=== PATIENT | female | born 1985 | race Hispanic/Latino ===

== ENCOUNTER → 2019-04-01 11:59 | Outpatient (CLI) | payer OTHER, MEDICAID, SELFPAY ==
[2019-04-01 13:28] LABS: Hematocrit 37.5 % (36-46); Hemoglobin 12.5 g/dL (12.0-16.0)
[2019-04-01 14:08] LABS: GTT (PREG) 1 Hour PP 50gm Dose 137 mg/dL (76-139)
== END ==
PROVIDERS: Visit Provider Family Medicine
DX: Z34.83 Encounter for supervision of other normal pregnancy, third trimester (principal); Z3A.29 29 weeks gestation of pregnancy
CPT/HCPCS: 36415; 82950; 85014; 85018

== ENCOUNTER → 2019-05-22 11:49 | Outpatient (CLI) | payer OTHER, MEDICAID, SELFPAY ==
[2019-05-22 13:57] LABS: Strep Grp B PCR NEG for Grp B Strep
== END ==
PROVIDERS: Visit Provider Family Medicine
DX: Z34.90 Encounter for supervision of normal pregnancy, unspecified, unspecified trimester (principal); Z3A.37 37 weeks gestation of pregnancy
CPT/HCPCS: 87081; 87653

== ENCOUNTER 2019-06-10 06:05 | Inpatient (IN) | payer OTHER, MEDICAID, SELFPAY ==
--- NOTE | 2019-06-10 07:01 | PM.HP.1 ---
History of Present Illness History of Present Illness Date Patient Seen: 06/10/19 Time Patient Seen: 07:01 Chief complaint: [id number] Narrative: 33-year-old female G3 para 1 estimated due date 06/12/2009 consistent with early ultrasound. If care established had approximately 12 weeks. Patient had routine follow-up during her care. Had weight gain of approximately 40 lb. Had normal blood pressures throughout. care complications includes history of in 2006 due to oligohydramnios she had late transfer care from [place]. Her medications during included vitamins metronidazole and Flagyl early in the hydrocortisone cream for hemorrhoids as well as near the end have prescription for Pepcid because of heartburn. On arrival to the center. She has intermittent contractions she is uncomfortable and she is ready to have a baby. She has no complaints of headache dizziness lightheadedness chest pain fevers. She has a little bit swollen. Patient's past medical history of external hemorrhoids otherwise she denies any history of diabetes heart disease respiratory problems problems with anemia or autoimmune disorders. Past surgical history includes previous . Infectious history. Patient denies any history of infectious diseases such as TB HSV virus no viral illnesses during the . She denies any history of sexually transmitted infections. labs blood type O-positive antibody screen negative VDRL nonreactive a the tightest B surface antigen negative HIV negative GC chlamydia negative rubella immune diabetes screening at 1:37 a.m. normal anatomy screening and GBS status is negative. Patient History Surgical History (Updated 03/19/19 @ 07:43 by Belkis Limon) Anesthesia (Acute) delivery delivered (Inactive) Family & Social History Family History (Updated 03/19/19 @ 07:44 by Belkis Limon) Mother Diabetes mellitus Heart disease Grandmother Diabetes mellitus Meds Home Medications and Allergies Home Medications Medication Instructions Recorded Confirmed Type prenat.vits,casey,jxk-wpfw-zlani 1 tab PO DAILY 03/18/19 05/28/19 History Allergies Allergy/AdvReac Type Severity Reaction Status Date / Time No Known Drug Allergies Allergy Verified 05/28/19 09:38 Exam Narrative Exam Narrative: . General: Alert no apparent distress. Affect is appropriate. HEENT: Neck is supple without lymphadenopathy pupils equal round and reactive. Cardio: S1-S2 regular rate and rhythm. Respiratory: Lungs clear to auscultation. Abdomen: Gravid. Extremities: Normal deep tendon reflexes trace edema. heart tracing. Category 1 tracing. Intermittent contractions on toco Objective Labs Result Diagrams: 06/10/19 06:54 Assessment & Plan Assessment & Plan narrative: 33-year-old G3 para 139 weeks gestational age for repeat delivery. Procedure was discussed in detail of repeat section including risks complications and aftercare instructions. Risk included possibility of bleeding as well as blood transfusion risk of infection. Also risk of injury to bladder or bowel. Consent was obtained and reviewed and signed with the patient today. Inpatient preoperative orders were written for. Anticipate epidural anesthesia. And postoperative stay to be approximately 2 days. Questions were answered about the surgery. And we will proceed with repeat section.
[2019-06-10 07:21] LABS: Add Manual Diff / Slide Review NO; Basophils Absolute Auto 0 /uL (0-100); Basophils Percent Auto 0.2 % (0-2); Eosinophils Absolute Auto 100 /uL (0-450); Eosinophils Percent Auto 0.6 % (2-4); Hematocrit 37.9 % (36-46); Hemoglobin 12.9 g/dL (12.0-16.0); Lymphocytes Absolute Auto 2000 /uL (1100-4500); Lymphocytes Percent Auto 22.4 % (25-40); Mean Corpuscular HGB Conc 33.9 % (30-36); Mean Corpuscular Hemoglobin 29.9 PG (26-34); Mean Corpuscular Volume 88.2 fL (80-100); Monocytes Absolute Auto 800 /uL (0-900); Monocytes Percent Auto 8.7 % (3-14); Neutrophils Absolute Auto 6000 /uL (1500-7000); Neutrophils Percent Auto 68.1 % (50-75); Platelet Count 221 X10^3/uL (150-400); White Blood Cell Count 8.8 X10^3/uL (4.5-11.0)
[2019-06-10] MEDS: CEFAZOLIN 2 GM/100 ML FROZ.PIGGY IV (08:00)
[2019-06-10 08:50] VITALS: BP 127/20
[2019-06-10] MEDS: CEFAZOLIN 1 GM VIAL IV (09:05)
--- NOTE | 2019-06-10 09:24 | SUR.OPER ---
Supine on Padded OR bed, head on pillow, safety belt at thigh, arms secured on padded arm boards at <90 degrees abduction. Bump under right buttock. Legs uncrossed with pillow under knees, gel pad to heels, tape over blanket to lower legs.
[2019-06-10] MEDS: LACTATED RINGERS 1,000 ML 100 ML IV ×2 (09:31→11:12)
--- NOTE | 2019-06-10 09:47 | SUR.OPER ---
live male at 0929. apgars 7/9
--- NOTE | 2019-06-10 10:14 | PM.PROC.1 ---
Procedures Date/Time Date of procedure: 06/10/19 Time of procedure: 10:15 General Procedure description: Procedure: Lower segment transverse section Consent: Verbal and written informed consent were obtained from the patient placed on the chart. Indications: 33-year-old G3 para 1 at 39 weeks gestational age for repeat section Findings: Normal uterus normal ovaries Normal male in vertex position Anesthesia: Spinal Surgeon: Dr. Jose Carlos Canales Primer Inserting Machine Operator: Dr. Khalif Vu Estimated blood loss: 500 mL Drains: Peng to gravity. IV fluids: 1800 Description of procedure: The patient was brought to the operating room after her spinal epidural, preparation, and Peng had been performed. The abdomen was prepped and draped in tested for for analgesia. When it was found to be adequate, a lower abdominal Pfannenstiel incision was made with first with a knife and cared down to the fascia with a second knife. The fascia was incised in the midline and extended laterally with a knife. Bleeding points were clamped with hemostats and Bovie coagulated. The rectus muscles were by blunt dissection. The rectus muscles were divided in the midline and the peritoneum was grasped with hemostats and carefully entered with Blue scissors. The incision was extended bilaterally. The bladder blade was then placed. The vesicoperitoneum was grasped with smooth pickups, entered with Metzenbaum scissors, and extended laterally. The bladder flap was created by gently blunt dissection and placed behind the bladder blade. The lower uterine segment was noted to be thin was carefully incised with the scalpel and extended laterally with the fingers. A live was found to be in the vertex position. The head was then easily elevated with the hand. Head was delivered with the use of a vacuum. The baby cried immediately, and was handed to the waiting attendant. The placenta was delivered manually. The uterus was explored with a wet lap sponge and found to be clear membranes. The first layer of the uterine closure was with running locking #1 chromic catgut suture. The second layer with an imbricating #1 chromic catgut suture. Hemostasis was carefully checked and found to be satisfactory. The bladder flap was closed with a running 2-0 chromic catgut suture. The fallopian tubes and ovaries were inspected and to be found normal bilaterally. After sponge and needle counts were found to be correct the peritoneum was closed with 2-0 chromic catgut suture. Rectus muscles were approximated in the lower midline. The fascia was closed with a 2 running 0 Vicryl from lateral to midline. The subcutaneous tissue was approximated with interrupted 2.0 plain gut. Bleeding points were Bovie and coagulated. The subcutaneous tissue was approximated with 2.0 plain gut suture. The skin was closed with 4-0 running subcuticular stitch. Urinary output was adequate and normal patient left to the recovery room in good condition.
[2019-06-10 10:16] VITALS: BP 103/44; PULSE 67; RESP 12; RESP 15; O2SAT 97; O2SAT 98
[2019-06-10 10:22] VITALS: BP 102/49; PULSE 74; RESP 14; O2SAT 97
[2019-06-10 10:26] VITALS: BP 106/50; PULSE 74; RESP 15; O2SAT 100
[2019-06-10 10:31] VITALS: BP 103/54; PULSE 65; RESP 17; TEMP 35.7; O2SAT 97
[2019-06-10] MEDS: KETOROLAC 30 MG/ML VIAL IV ×2 (17:05→23:01)
[2019-06-11] MEDS: KETOROLAC 30 MG/ML VIAL IV (05:10)
[2019-06-11 07:38] LABS: Add Manual Diff / Slide Review NO; Basophils Absolute Auto 0 /uL (0-100); Basophils Percent Auto 0.3 % (0-2); Eosinophils Absolute Auto 0 /uL (0-450); Eosinophils Percent Auto 0.3 % (2-4); Hematocrit 33.2 % (36-46); Hemoglobin 11.4 g/dL (12.0-16.0); Lymphocytes Absolute Auto 2200 /uL (1100-4500); Mean Corpuscular HGB Conc 34.3 % (30-36); Mean Corpuscular Hemoglobin 30.4 PG (26-34); Mean Corpuscular Volume 88.6 fL (80-100); Monocytes Absolute Auto 1100 /uL (0-900); Neutrophils Absolute Auto 9000 /uL (1500-7000); Neutrophils Percent Auto 72.4 % (50-75); Platelet Count 213 X10^3/uL (150-400); Red Blood Cell Count 3.74 X10^6/uL (4.0-5.2); Red Cell Distribution Width 14.3 % (11.6-14.8); White Blood Cell Count 12.4 X10^3/uL (4.5-11.0)
--- NOTE | 2019-06-11 08:03 | P.PN_ITS ---
Subjective Subjective Date Patient Seen: 06/11/19 Time Patient Seen: 08:03 Interval history: Patient is seen and evaluated she is doing well this morning. Her Peng catheters out SCDs off she sitting at the bedside. When I examined the baby she gets up and moves. She says her pain is well controlled. Not really having a lot of cramping. Bleeding is anticipated. Vital signs are stable. She is a little bit itchy. She is tolerating her diet no bowel movemen t yet. She is afebrile. Overall feeling well. Exam Vital Signs (past 8 hours): Oxygen Delivery Method Room Air Narrative Exam Narrative: General: Alert no apparent distress. Affect is appropriate. [place] it is uncomfortable. HEENT: Neck is supple without lymphadenopathy pupils equal round and reactive. Cardio: S1-S2 regular rate and rhythm. Respiratory: Lungs clear to auscultation. Abdomen: Uterus firm. Incision clean dry and intact. Extremities: Normal deep tendon reflexes trace edema. Objective Labs Result Diagrams: 06/11/19 06:31 Labs: Laboratory Results - last 24 hr 06/11/19 06:31 WBC 12.4 H RBC 3.74 L Hgb 11.4 L Hct 33.2 L MCV 88.6 MCH 30.4 MCHC 34.3 RDW 14.3 Plt Count 213 Neut % (Auto) 72.4 Lymph % (Auto) 18.0 L [place] % (Auto) 9.0 Eos % (Auto) 0.3 L Baso % (Auto) 0.3 Neut # (Auto) 9000 H Lymph # (Auto) 2200 [place] # (Auto) 1100 H Eos # (Auto) 0 Baso # (Auto) 0 Assessment & Plan Assessment & Plan narrative: day 1. Status post repeat section. Patient is doing well today. Pain is well controlled some mild cramping. She is worried that her breast milk has not come in she is tolerating her diet. She has some mild itching. Normal vaginal bleeding as expected. She is not anemic. SCDs and Peng catheter and IV had been removed. Gradually increasing diet starting on oral pain medication and overall patient is tolerating things well. Anticipate discharge tomorrow.
[2019-06-11] MEDS: IBUPROFEN 600 MG TABLET PO ×3 (09:41→21:45)
[2019-06-11] MEDS: PRENATAL VIT,CALC/IRON/FOLIC 1 TABLET 1 TAB PO (09:41)
[2019-06-11] MEDS: DOCUSATE 250 MG CAPSULE PO (09:42)
[2019-06-11 16:00] VITALS: BP 104/58; PULSE 74; RESP 16; TEMP 36.4
[2019-06-11] MEDS: OXYCODONE/ACETAMINOPHEN 5/325 TABLET 2 TAB PO ×2 (17:18→21:44)
[2019-06-12] MEDS: OXYCODONE/ACETAMINOPHEN 5/325 TABLET 2 TAB PO ×2 (03:22→09:02)
[2019-06-12] MEDS: IBUPROFEN 600 MG TABLET PO ×2 (03:23→09:01)
--- NOTE | 2019-06-12 08:20 | PM.DS.1 ---
History of Present Illness History of Present Illness Chief complaint: [id number] Narrative: 33-year-old female G3 para 1 estimated due date 06/12/2009 consistent with early ultrasound. If care established had approximately 12 weeks. Patient had routine follow-up during her care. Had weight gain of approximately 40 lb. Had normal blood pressures throughout. care complications includes history of in 2006 due to oligohydramnios she had late transfer care from [place]. Her medications during included vitamins metronidazole and Flagyl early in the hydrocortisone cream for hemorrhoids as well as near the end have prescription for Pepcid because of heartburn. On arrival to the center. She has intermittent contractions she is uncomfortable and she is ready to have a baby. She has no complaints of headache dizziness lightheadedness chest pain fevers. She has a little bit swollen. Patient's past medical history of external hemorrhoids otherwise she denies any history of diabetes heart disease respiratory problems problems with anemia or autoimmune disorders. Past surgical history includes previous . Infectious history. Patient denies any history of infectious diseases such as TB HSV virus no viral illnesses during the . She denies any history of sexually transmitted infections. labs blood type O-positive antibody screen negative VDRL nonreactive a the tightest B surface antigen negative HIV negative GC chlamydia negative rubella immune diabetes screening at 1:37 a.m. normal anatomy screening and GBS status is negative. Discharge Providers Provider Date of admission: 06/10/19 06:05 Discharge Date: 06/12/19 Primary care physician: Jose Carlos Canales MD Consults: 06/10/19 11:06 Consult to Weatherization And Housing Inspector Routine Comment: Discharge provider: Jose Carlos Canales MD Summary Hospital Course Discharge Diagnosis: Term intrauterine Repeat section Uncomplicated post delivery care Hospital Course: Patient was admitted the hospital per for repeat section please see admission HPI. Patient underwent a without the problems. Had delivery of a viable male . day 1. Patient had good pain control she was eating ambulating Peng and SCDs and IV were removed. She was tolerating pain medication on postoperative day 2. Breast-feeding was going well. She was sleeping well. Patient was the afebrile and vital signs were stable she was not significantly anemic and ready for discharge. Exam Vital Signs (past 8 hours): Oxygen Delivery Method Room Air Narrative Exam Narrative: General: Alert no apparent distress. Affect is appropriate. [place] it is uncomfortable. HEENT: Neck is supple without lymphadenopathy pupils equal round and reactive. Cardio: S1-S2 regular rate and rhythm. Respiratory: Lungs clear to auscultation. Abdomen: Uterus firm. Incision clean dry and intact. Extremities: Normal deep tendon reflexes trace edema. Objective Labs Result Diagrams: 06/11/19 06:31 Discharge Plan Discharge Plan Patient Disposition: Home Discharge orders & Medications Prescriptions: New hydrocodone-acetaminophen 5-325 mg Tablet 2 tab PO Q4HR PRN (Reason: Pain, Severe (7-10)) Qty: 30 RF: 0 ibuprofen 600 mg Tablet 600 mg PO Q6HR PRN (Reason: Fever/Mild Pain (1-3)) Qty: 30 RF: 0 docusate sodium 250 mg Capsule 250 mg PO DAILY Qty: 30 RF: 0 Continued prenat.vits,casey,umu-bxhv-sscwf tablet 1 tab PO DAILY RF: 0 Follow up/Referrals: Jose Carlos Canales MD [Primary Care Provider] - Diet/Activity/Treatments Diet: Diet as Tolerated Activity: As tolerated lifting nothing heavier than the baby until follow-up appointment. Skin/Wound/Dressing Care Report to your healthcare provider any signs of infection, such as:: chills, fever, increased pain, unusual drainage and unusual redness Dressing: Keep dressing dry until follow-up appointment where will be removed Visit Report/Discharge Packet Instructions: DI for Stand Alone Forms: Discharge: Care Visit Report Forms: Patient Portal/API, Stroke Signs & Symptoms Discharge Data Primary Care Provider: Jose Carlos Canales
[2019-06-12] MEDS: DOCUSATE 250 MG CAPSULE PO (09:01)
== END 2019-06-12 14:20 | disposition home or self-care (01) | DRG 540 ==
PROVIDERS: Admitting Provider Family Medicine; PCP Family Medicine; Visit Provider Family Medicine
PROC: (CPT 59514; principal; 2019-06-10 07:45)
DX: O34.219 Maternal care for unspecified type scar from previous cesarean delivery (principal); Z3A.39 39 weeks gestation of pregnancy; Z37.0 Single live birth
CPT/HCPCS: 36415; 59050; 59514; 85025; 86850; 86900; 86901; J0171; J0690; J1100; J1885; J2274; J2405; J2590; J2765

== ENCOUNTER 2019-07-03 17:01 | Observation (INO) | payer OTHER, MEDICAID, SELFPAY ==
--- NOTE | 2019-07-03 17:53 | PM.HP.1 ---
History of Present Illness History of Present Illness Date Patient Seen: 07/03/19 Time Patient Seen: 17:54 Chief complaint: endometritis Narrative: 33-year-old female who is a G2 now para 2 who went under repeat section on June 10 2019. Patient states she has not been feeling well for the last 48 hours. She has also had some increasing tenderness and discomfort in her abdomen. She says it's more on the left side initially but now it's generally across her abdomen. She has been not having any drainage or discharge from her abdomen incision and that looks good. She began to have increasing pain today and chills. Although she did not check her temperature home she took some Tylenol for pain or discomfort. The patient is also noticed that she had initially lots of bleeding and that's now resolved. Over the last few days she has had some discharge that's a little bit different which is brown and hasn't odor to it. Patient has also noticed that her left breast is a little bit tender and swollen with breast-feeding she says it goes down but still quite tender on the outside it's not red or hot but it is sore. She has not had a breast infection before. She has been eating well. She has had no problems with bowel movements. Her urination has been fine with no burning or frequency. Patient History Surgical History Anesthesia (Acute) delivery delivered (Inactive) Family & Social History Family History Mother Diabetes mellitus Heart disease Grandmother Diabetes mellitus Tobacco & Substance use: Smoking Status Never smoker Meds Home Medications and Allergies Home Medications Medication Instructions Recorded Confirmed Type prenat.vits,casey,oaj-smgi-dbacs 1 tab PO DAILY 03/18/19 06/20/19 History docusate sodium 250 mg PO DAILY #30 cap 06/12/19 06/20/19 Rx hydrocodone 5 mg-acetaminophen 325 2 tab PO Q4HR PRN #20 tab 06/20/19 06/20/19 Rx mg tablet ibuprofen 600 mg tablet 600 mg PO Q6HR PRN #30 tab 06/20/19 06/20/19 Rx Allergies Allergy/AdvReac Type Severity Reaction Status Date / Time No Known Drug Allergies Allergy Verified 07/03/19 16:31 Exam Narrative Exam Narrative: Gen.: She is alert oriented mildly uncomfortable. HEENT: Pupils equal round and reactive to light oral mucosa is moist neck is supple Cardio: S1-S2 regular rate and rhythm Respiratory: Lungs are clear to auscultation no wheezes or crackles normal respiratory effort. Breast: Left-sided breast lump and tenderness with without warmth mildly painful Abdomen: Lower Pfannenstiel incision looks good there is no redness or drainage or discharge. Discomfort and tenderness over the uterus. More so on the left side but generally across the lower abdominal area. Uterus feels enlarged Extremities: No significant lower extremity edema Neurologic: Grossly intact. 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 Patient was admitted to my office to the hospital. Patient will have a CBC comprehensive better folic profile and blood cultures. Not recommended to do vaginal cultures for endometriosis on review of the literature. Antibiotic choices were reviewed. Recommended to start on Zosyn 3.725 mg IV every 6 hours. Elected not to use clindamycin and gentamicin due to the ototoxicity and renal toxicity of gentamicin. Will provide pain relief with Tylenol Motrin and hydrocodone. She'll be started on a general diet and be given IV fluids for hydration will monitor closely temperature is will provide anti emetic. Patient will be provided with SCDs for DVT prophylaxis. Patient is breast-feeding as well. Will follow closely blood cultures white blood cell count and temperature pattern near Patient does have left breast tenderness. She may have early mastitis more likely a clogged milk duct. This also could be contributing to her fevers and chills. Certainly this would be covered with the Zosyn antibiotic.
[2019-07-03 17:57] VITALS: BP 120/70; PULSE 96; RESP 18; TEMP 37.3; O2SAT 96
[2019-07-03] MEDS: LACTATED RINGERS 1,000 ML 150 ML IV (18:48)
[2019-07-03] MEDS: PIPERACILLIN-TAZO 3.375 GM/50 ML FROZ.PIGGY IV (18:48)
[2019-07-03] MEDS: ACETAMINOPHEN 325 MG TABLET 650 MG PO (18:48)
[2019-07-03 18:52] LABS: Add Manual Diff / Slide Review NO; Basophils Absolute Auto 100 /uL (0-100); Basophils Percent Auto 0.9 % (0-2); Eosinophils Absolute Auto 200 /uL (0-450); Hematocrit 39.3 % (36-46); Hemoglobin 13.6 g/dL (12.0-16.0); Lymphocytes Absolute Auto 2200 /uL (1100-4500); Mean Corpuscular HGB Conc 34.5 % (30-36); Mean Corpuscular Volume 86.7 fL (80-100); Monocytes Absolute Auto 800 /uL (0-900); Monocytes Percent Auto 7.2 % (3-14); Neutrophils Absolute Auto 7200 /uL (1500-7000); Neutrophils Percent Auto 68.9 % (50-75); Platelet Count 273 X10^3/uL (150-400); Red Blood Cell Count 4.54 X10^6/uL (4.0-5.2); Red Cell Distribution Width 13.6 % (11.6-14.8); White Blood Cell Count 10.5 X10^3/uL (4.5-11.0)
[2019-07-03 19:01] LABS: Alanine Aminotransferase 44 IU/L (<35); Albumin 4.7 g/dL (3.5-5.0); Albumin Globulin Ratio 1.2 (1.0-2.8); Alkaline Phosphatase 137 U/L (38-126); Aspartate Aminotransferase 52 IU/L (14-36); Bilirubin Total 0.3 mg/dL (0.2-1.3); Blood Urea Nitrogen 9 mg/dL (7-17); Calcium 9.8 mg/dL (8.4-10.2); Carbon Dioxide 25 mmol/L (22-32); Chloride 100 mmol/L (98-107); Estimated Glomerular Filt Rate > 60.0 mL/min (>60); Globulin 3.8 g/dL (1.7-4.1); Glucose 86 mg/dL (70-100); HEMOLYSIS < 15 (0-50); Potassium 3.6 mmol/L (3.4-5.1); Sodium 136 mmol/L (137-145); Total Protein 8.5 g/dL (6.3-8.2)
[2019-07-03 19:07] VITALS: BMI 31.8
[2019-07-03] MEDS: HYDROCODONE/ACET 5/325 TABLET 2 TAB PO (20:05)
[2019-07-03] MEDS: SENNOSIDES 8.6 MG TABLET 17.2 MG PO (20:05)
--- NOTE | 2019-07-03 21:44 | PC.NURSE ---
Becky shift note: Patient admitted directly from Dr. Pan office. C/O abdominal incisional pain S/P c section and abnormal discharge. Patient is Mother to 3 week and 12 year old daughter. Daughter is staying with a neighbor and 3 week son is in her arms. Son will be staying with patient in hospital until further arrangements can be made, patient states she is alone and does not have family available. States 12 year old daughter is safe with neighbors. Oriented to room, environment, and plan of care. Discussed in great detail safety methods while caring for while hospitalized, including not falling asleep with baby in arms, calling for assistance as needed for transferring patient to [facility], special attention to IV tubing and other equipment. Langley is exclusively breastfed, [facility] provided with supplies. Upon arrival patient was tearful due to hospitalization. Supportive care provided by nursing staff, Dr. Canales at bedside this becky. Social Work consult placed.
[2019-07-03 22:19] VITALS: BP 104/48; PULSE 79; RESP 18; TEMP 36.4; O2SAT 98
[2019-07-03 23:30] VITALS: BP 98/50; PULSE 65; RESP 18; TEMP 36.6; O2SAT 97
[2019-07-04] MEDS: PIPERACILLIN-TAZO 3.375 GM/50 ML FROZ.PIGGY IV ×3 (01:25→13:31)
[2019-07-04] MEDS: LACTATED RINGERS 1,000 ML 150 ML IV ×2 (02:24→09:37)
[2019-07-04 04:01] VITALS: BP 98/52; PULSE 60; RESP 18; TEMP 36.7; O2SAT 99
[2019-07-04 05:46] LABS: Add Manual Diff / Slide Review NO; Basophils Absolute Auto 0 /uL (0-100); Basophils Percent Auto 0.5 % (0-2); Eosinophils Absolute Auto 200 /uL (0-450); Eosinophils Percent Auto 2.9 % (2-4); Hemoglobin 12.4 g/dL (12.0-16.0); Lymphocytes Absolute Auto 1800 /uL (1100-4500); Lymphocytes Percent Auto 24.8 % (25-40); Mean Corpuscular HGB Conc 33.5 % (30-36); Mean Corpuscular Hemoglobin 29.4 PG (26-34); Mean Corpuscular Volume 87.6 fL (80-100); Monocytes Absolute Auto 700 /uL (0-900); Monocytes Percent Auto 10.1 % (3-14); Neutrophils Absolute Auto 4500 /uL (1500-7000); Neutrophils Percent Auto 61.7 % (50-75); Platelet Count 237 X10^3/uL (150-400); Red Blood Cell Count 4.22 X10^6/uL (4.0-5.2); Red Cell Distribution Width 13.4 % (11.6-14.8); White Blood Cell Count 7.4 X10^3/uL (4.5-11.0)
[2019-07-04 05:54] LABS: Blood Urea Nitrogen 9 mg/dL (7-17); Carbon Dioxide 26 mmol/L (22-32); Chloride 102 mmol/L (98-107); Estimated Glomerular Filt Rate > 60.0 mL/min (>60); Glucose 90 mg/dL (70-100); HEMOLYSIS < 15 (0-50); Potassium 3.9 mmol/L (3.4-5.1); Sodium 136 mmol/L (137-145)
--- NOTE | 2019-07-04 06:59 | PM.PN.1 ---
Subjective Subjective Date Patient Seen: 07/04/19 Time Patient Seen: 06:59 Interval history: Patient seen and evaluated this morning. Did well overnight. No more fever chills as what she describes. A little bit of nausea this morning she says she didn't eat much. Hasn't taken any pain medication. Vital signs have been stable throughout the evening. Blood pressure is a little bit low. Reviewed laboratory results with her. She has mild elevation of her liver enzymes not sure what to make of that. Overall she says she feels better. Less tenderness in her abdomen still little bit of discomfort on her left side. She says she can sit up now on walk a little bit better. No vaginal bleeding. Still discharge. Exam Vital Signs (past 8 hours): - 07/03/19 23:30 07/04/19 04:01 Temperature 97.8 F 98.1 F Pulse Rate 65 60 Respiratory Rate 18 18 Blood Pressure 98/50 L 98/52 L Pulse Oximetry 97 99 Oxygen Flow Rate 0 Narrative Exam Narrative: Gen.: Alert good historian HEENT: Pupils equal round and reactive or mucosa is moist Cardio: S1-S2 regular rate and rhythm Respiratory: Normal respiratory effort lungs are clear no wheezes or crackles Abdomen: Positive bowel tones. Uterus is a couple of cm below the umbilicus. Tenderness on the left lower quadrant uterus area. It's not as painful or boggy feeling at yesterday. Extremities: No lower extremity edema Objective Labs Result Diagrams: 07/04/19 05:05 07/04/19 05:05 Labs: Laboratory Results - last 24 hr 07/03/19 07/03/19 07/04/19 18:30 18:30 05:05 WBC 10.5 7.4 RBC 4.54 4.22 Hgb 13.6 12.4 Hct 39.3 37.0 MCV 86.7 87.6 MCH 30.0 29.4 MCHC 34.5 33.5 RDW 13.6 13.4 Plt Count 273 237 Neut % (Auto) 68.9 61.7 Lymph % (Auto) 21.0 L 24.8 L [place] % (Auto) 7.2 10.1 Eos % (Auto) 2.0 2.9 Baso % (Auto) 0.9 0.5 Neut # (Auto) 7200 H 4500 Lymph # (Auto) 2200 1800 [place] # (Auto) 800 700 Eos # (Auto) 200 200 Baso # (Auto) 100 0 Sodium 136 L Potassium 3.6 Chloride 100 Carbon Dioxide 25 BUN 9 Creatinine 0.60 Estimated GFR > 60.0 BUN/Creatinine Ratio 15.0 Glucose 86 Calcium 9.8 Total Bilirubin 0.3 AST 52 H ALT 44 H Alkaline Phosphatase 137 H Total Protein 8.5 H Albumin 4.7 Globulin 3.8 Albumin/Globulin Ratio 1.2 07/04/19 05:05 WBC RBC Hgb Hct MCV MCH MCHC RDW Plt Count Neut % (Auto) Lymph % (Auto) [place] % (Auto) Eos % (Auto) Baso % (Auto) Neut # (Auto) Lymph # (Auto) [place] # (Auto) Eos # (Auto) Baso # (Auto) Sodium 136 L Potassium 3.9 Chloride 102 Carbon Dioxide 26 BUN 9 Creatinine 0.60 Estimated GFR > 60.0 BUN/Creatinine Ratio 15.0 Glucose 90 Calcium 9.0 Total Bilirubin AST ALT Alkaline Phosphatase Total Protein Albumin Globulin Albumin/Globulin Ratio Assessment & Plan Assessment & Plan narrative: Endometritis status post . Afebrile last night. White blood cell count looks better than expected. She says pain is decreased this morning she is having a little nausea. Tenderness in her lower pelvis over uterus is definitely improved. Still having tenderness on the left side of her abdomen. Her fevers and chills that she was having yesterday has also improved. Continue with IV antibiotics today. Re-evaluate this afternoon. Anticipate 24 more hours of need for antibiotics. Left breast tenderness. Think patient has a clogged milk duct. She may have a little low-grade breast infection. Current antibiotics which certainly cover that. Definitely improved today. Breast-feeding is going well and well established. Social concerns. Patient does not have a house or car. She has had a stable place to stay during her and now after her . Due to her difficult social circumstances. Best to have her come in for IV antibiotics. She does have a safe place to go and replace for her baby and family. And has good support. But this is of course an ongoing issue. Disposition and plan. Patient being significantly improved afebrile no white blood cell count continue with IV antibiotics for 24 more hours. Quality VTE Deep Vein Thrombosis/Pulmonary Embolism Present on Admission: No
[2019-07-04 08:00] VITALS: BP 115/65; PULSE 74; RESP 16; TEMP 36.8; O2SAT 99
[2019-07-04] MEDS: ACETAMINOPHEN 325 MG TABLET 650 MG PO (09:36)
[2019-07-04 12:00] VITALS: BP 119/72; PULSE 73; RESP 16; TEMP 36.5; O2SAT 96
--- NOTE | 2019-07-04 12:19 | PM.CN ---
History of Present Illness Consult details Date Patient Seen: 07/04/19 Time Patient Seen: 12:20 Chief complaint: endometritis Reason for consult: post fever Requesting provider: Jose Carlos Canales Narrative: The patient is a 33 year portaqu[place] female who underwent section on the 10 of June. The patient's course in the hospital was uneventful. She was discharged home. Most recently the patient has had a slight fever with breast pain and lower abdominal discomfort and pain. she was seen by Jose Carlos Viveros MD who felt she might have an endometritis. But there also was a left breast lump. Initial white count was 10,500 with hematocrit of 39. Subsequent hematocrit was 37 with a white count of 7500. The only abnormal laboratory findings her mildly elevated LFTs. The patient had no blood pressure issues during her her blood pressure remains normotensive currently. We are asked to consult the patient with regards to her fever post section. Meds Home Medications and Allergies Home Medications Medication Instructions Recorded Confirmed Type prenat.vits,casey,ymm-txmz-opaoo 1 tab PO DAILY 03/18/19 07/04/19 History docusate sodium 250 mg PO DAILY #30 cap 06/12/19 07/04/19 Rx hydrocodone 5 mg-acetaminophen 325 2 tab PO Q4HR PRN #20 tab 06/20/19 07/04/19 Rx mg tablet ibuprofen 600 mg tablet 600 mg PO Q6HR PRN #30 tab 06/20/19 07/04/19 Rx Allergies Allergy/AdvReac Type Severity Reaction Status Date / Time No Known Drug Allergies Allergy Verified 07/03/19 16:31 Review of Systems Review of Systems ROS Unobtainable: All systems reviewed & are unremarkable except as noted in HPI and below Exam Vital Signs (past 8 hours): - 07/04/19 08:00 Temperature 98.3 F Pulse Rate 74 Respiratory Rate 16 Blood Pressure 115/65 Pulse Oximetry 99 Oxygen Flow Rate 0 Narrative Exam Narrative: Well nourished female appearing her stated age. and having no major issues. HENMT Head: normal to inspection Chest Chest: normal inspection of the chest and normal palpation of entire chest wall Breast inspection: abnormal inspection of the breast (Patient has breast lump approximately 2 cm x 2 cm in the left upper outer q) left upper outer Cardio Heart Sounds: murmur systolic GI Inspection: normal to inspection and incision (No evidence of infection hematoma) Objective Labs Result Diagrams: 07/04/19 05:05 07/04/19 05:05 Labs: Laboratory Results - last 24 hr 07/03/19 07/03/19 07/04/19 18:30 18:30 05:05 WBC 10.5 7.4 RBC 4.54 4.22 Hgb 13.6 12.4 Hct 39.3 37.0 MCV 86.7 87.6 MCH 30.0 29.4 MCHC 34.5 33.5 RDW 13.6 13.4 Plt Count 273 237 Neut % (Auto) 68.9 61.7 Lymph % (Auto) 21.0 L 24.8 L [place] % (Auto) 7.2 10.1 Eos % (Auto) 2.0 2.9 Baso % (Auto) 0.9 0.5 Neut # (Auto) 7200 H 4500 Lymph # (Auto) 2200 1800 Carbon # (Auto) 800 700 Eos # (Auto) 200 200 Baso # (Auto) 100 0 Sodium 136 L Potassium 3.6 Chloride 100 Carbon Dioxide 25 BUN 9 Creatinine 0.60 Estimated GFR > 60.0 BUN/Creatinine Ratio 15.0 Glucose 86 Calcium 9.8 Total Bilirubin 0.3 AST 52 H ALT 44 H Alkaline Phosphatase 137 H Total Protein 8.5 H Albumin 4.7 Globulin 3.8 Albumin/Globulin Ratio 1.2 07/04/19 05:05 WBC RBC Hgb Hct MCV MCH MCHC RDW Plt Count Neut % (Auto) Lymph % (Auto) [place] % (Auto) Eos % (Auto) Baso % (Auto) Neut # (Auto) Lymph # (Auto) [place] # (Auto) Eos # (Auto) Baso # (Auto) Sodium 136 L Potassium 3.9 Chloride 102 Carbon Dioxide 26 BUN 9 Creatinine 0.60 Estimated GFR > 60.0 BUN/Creatinine Ratio 15.0 Glucose 90 Calcium 9.0 Total Bilirubin AST ALT Alkaline Phosphatase Total Protein Albumin Globulin Albumin/Globulin Ratio Assessment & Plan Assessment & Plan narrative: Patient with low-grade fever with lower abdominal tenderness some breast tenderness Most likely diagnosis this far removed the original surgery would be mastitis Patient appears much improved She is taking p.o. well and ambulating well. She is afebrile and her white count is normal. Would recommend discharge on Augmentin 850 mg p.o. b.i.d. for seven days. Patient needs much social service help as it appears that she has borderline homeless and simply living with friends.
--- NOTE | 2019-07-04 15:00 | P.DS_ITS ---
History of Present Illness History of Present Illness Chief complaint: endometritis Narrative: 33-year-old female who is a G2 now para 2 who went under repeat section on June 10 2019. Patient states she has not been feeling well for the last 48 hours. She has also had some increasing tenderness and discomfort in her abdomen. She says it's more on the left side initially but now it's generally across her abdomen. She has been not having any drainage or discharge from her abdomen incision and that looks good. She began to have increasing pain today and chills. Although she did not check her temperature home she took some Tylenol for pain or discomfort. The patient is also noticed that she had initially lots of bleeding and that's now resolved. Over the last few days she has had some discharge that's a little bit different which is brown and hasn't odor to it. Patient has also noticed that her left breast is a little bit tender and swollen with breast-feeding she says it goes down but still quite tender on the outside it's not red or hot but it is sore. She has not had a breast infection before. She has been eating well. She has had no problems with bowel movements. Her urination has been fine with no burning or frequency. Discharge Providers Provider Date of admission: 07/03/19 17:01 Discharge Date: 07/04/19 Primary care physician: Jose Carlos Canales MD Consults: 07/04/19 08:27 Consult to [facility] [place] [employer] Routine Comment: homeless w/ 3 wk infant, no help. w/ patien Discharge provider: Jose Carlos Canales MD Summary Hospital Course Discharge Diagnosis: endometritis Mastitis Hospital Course: Patient was admitted the hospital with significant uterine Dinh pain uterine bogginess and tenderness subjective fevers and chills she also had left breast tenderness concerning for also breast infection or clogged milk duct . She was admitted to the hospital for IV antibiotics. Patient was started on Zosyn. Had CBC blood cultures and chemistry profiles. Blood counts came back normal blood cultures at this point show no growth. She had mild abnormality to her liver enzymes. During hospital stay within 24 hours pain is significantly improved she is afebrile she is eating she is ambulating well. Patient did not require pain medication. She says her abdominal pain and tenderness is improving although tenderness on the left side. Her breast pain and tenderness is also improving. Exam Vital Signs (past 8 hours): - 07/04/19 08:00 07/04/19 12:00 Temperature 98.3 F 97.7 F Pulse Rate 74 73 Respiratory Rate 16 16 Blood Pressure 115/65 119/72 Pulse Oximetry 99 96 Oxygen Flow Rate 0 Objective Labs Result Diagrams: 07/04/19 05:05 07/04/19 05:05 Labs: Laboratory Results - last 24 hr 07/03/19 07/03/19 07/04/19 18:30 18:30 05:05 WBC 10.5 7.4 RBC 4.54 4.22 Hgb 13.6 12.4 Hct 39.3 37.0 MCV 86.7 87.6 MCH 30.0 29.4 MCHC 34.5 33.5 RDW 13.6 13.4 Plt Count 273 237 Neut % (Auto) 68.9 61.7 Lymph % (Auto) 21.0 L 24.8 L [place] % (Auto) 7.2 10.1 Eos % (Auto) 2.0 2.9 Baso % (Auto) 0.9 0.5 Neut # (Auto) 7200 H 4500 Lymph # (Auto) 2200 1800 [place] # (Auto) 800 700 Eos # (Auto) 200 200 Baso # (Auto) 100 0 Sodium 136 L Potassium 3.6 Chloride 100 Carbon Dioxide 25 BUN 9 Creatinine 0.60 Estimated GFR > 60.0 BUN/Creatinine Ratio 15.0 Glucose 86 Calcium 9.8 Total Bilirubin 0.3 AST 52 H ALT 44 H Alkaline Phosphatase 137 H Total Protein 8.5 H Albumin 4.7 Globulin 3.8 Albumin/Globulin Ratio 1.2 07/04/19 05:05 WBC RBC Hgb Hct MCV MCH MCHC RDW Plt Count Neut % (Auto) Lymph % (Auto) [place] % (Auto) Eos % (Auto) Baso % (Auto) Neut # (Auto) Lymph # (Auto) [place] # (Auto) Eos # (Auto) Baso # (Auto) Sodium 136 L Potassium 3.9 Chloride 102 Carbon Dioxide 26 BUN 9 Creatinine 0.60 Estimated GFR > 60.0 BUN/Creatinine Ratio 15.0 Glucose 90 Calcium 9.0 Total Bilirubin AST ALT Alkaline Phosphatase Total Protein Albumin Globulin Albumin/Globulin Ratio Discharge Plan Discharge Plan Patient Disposition: Home Discharge orders & Medications Prescriptions: New amoxicillin-pot clavulanate [Augmentin] 875-125 mg tablet 1 tab PO BID Qty: 20 RF: 0 Continued prenat.vits,casey,mvj-wpuj-pmpxt tablet 1 tab PO DAILY RF: 0 ibuprofen 600 mg tablet 600 mg PO Q6HR PRN (Reason: Fever/Mild Pain (1-3)) Qty: 30 RF: 0 hydrocodone-acetaminophen 5-325 mg tablet 2 tab PO Q4HR PRN (Reason: Pain, Severe (7-10)) Qty: 20 RF: 0 docusate sodium 250 mg Capsule 250 mg PO DAILY Qty: 30 RF: 0 Follow up/Referrals: Jose Carlos Canales MD [Primary Care Provider] - Visit Report/Discharge Packet Visit Report Forms: Patient Portal/API, Stroke Signs & Symptoms Discharge Data Primary Care Provider: Jose Carlos Canales Quality VTE Deep Vein Thrombosis/Pulmonary Embolism Present on Admission: No
--- NOTE | 2019-07-04 15:56 | PC.NURSE ---
Discharge note: Patient discharge home per MD orders, discussed importance of F/U with Dr. Canales in 1 week and Antibiotic therapy as prescribed. Verbalized understanding of instructions. Discharge home via private vehicle with friend, daughter and son. Rx sent to preferred location by MD.
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
== END 2019-07-04 15:33 | disposition home or self-care (01) ==
PROVIDERS: Admitting Provider Family Medicine; PCP Family Medicine; Visit Provider Family Medicine
DX: O86.12 Endometritis following delivery (principal); N61.0 Mastitis without abscess; Z59.0 Homelessness
CPT/HCPCS: 36415; 80048; 80053; 85025; 87040; 99223; 99238; 99251; G0378; G0379; J2543

== ENCOUNTER → 2024-03-05 14:58 | Outpatient (CLI) | payer MEDICAID, SELFPAY ==
[2024-03-07 14:09] LABS: Candida species Negative (Negative); Gardnerella vaginalis Positive (Negative); Trichomoas vaginalis Negative (Negative)
== END ==
PROVIDERS: PCP Family Medicine; Visit Provider Student in an Organized Health Care Education/Training Program
DX: Z34.00 Encounter for supervision of normal first pregnancy, unspecified trimester (principal); A49.9 Bacterial infection, unspecified
CPT/HCPCS: 87480; 87510; 87660

== ENCOUNTER → 2024-03-05 15:13 | Outpatient (CLI) | payer MEDICAID, SELFPAY ==
[2024-03-05 15:57] LABS: Add Manual Diff / Slide Review NO; Basophils Absolute Auto 0 /uL (0-100); Basophils Percent Auto 0.3 % (0-2); Eosinophils Absolute Auto 200 /uL (0-450); Eosinophils Percent Auto 2.1 % (2-4); Hematocrit 37.7 % (36-46); Hemoglobin 12.8 g/dL (12.0-16.0); Lymphocytes Absolute Auto 2500 /uL (1100-4500); Lymphocytes Percent Auto 24.8 % (25-40); Mean Corpuscular Hemoglobin 30.2 PG (26-34); Mean Corpuscular Volume 88.7 fL (80-100); Monocytes Absolute Auto 700 /uL (0-900); Monocytes Percent Auto 6.8 % (3-14); Neutrophils Absolute Auto 6500 /uL (1500-7000); Platelet Count 254 X10^3/uL (150-400); Red Blood Cell Count 4.24 X10^6/uL (4.0-5.2); Red Cell Distribution Width 13.3 % (11.6-14.8); White Blood Cell Count 9.9 X10^3/uL (4.5-11.0)
[2024-03-05 16:20] LABS: Natera Collection Specimen Collected
[2024-03-05 16:33] LABS: Alanine Aminotransferase 16 IU/L (<35); Albumin 4.1 g/dL (3.5-5.0); Albumin Globulin Ratio 1.2 (1.0-2.8); Alkaline Phosphatase 69 U/L (38-126); Aspartate Aminotransferase 22 IU/L (14-36); BUN Creatinine Ratio 15.6 (6-22); Bilirubin Total 0.3 mg/dL (0.2-1.3); Blood Urea Nitrogen 7 mg/dL (7-17); Calcium 10.4 mg/dL (8.4-10.2); Carbon Dioxide 21 mmol/L (22-32); Chloride 104 mmol/L (98-107); Estimated Glomerular Filt Rate > 60 mL/min (>60); Globulin 3.3 g/dL (1.7-4.1); Glucose 89 mg/dL (70-100); HEMOLYSIS < 15 (0-50); Potassium 3.5 mmol/L (3.4-5.1); Sodium 134 mmol/L (137-145); Total Protein 7.4 g/dL (6.3-8.2)
[2024-03-07 05:15] LABS: RPR Screen Non Reactive (Non Reactive)
[2024-03-07 09:10] LABS: Varicella IgG Antibody 532 index (Immune >165)
[2024-03-07 21:33] LABS: Hepatitis B Surface Antigen NEGATIVE s/c (NEGATIVE); Rubella Antibody IgG 37.6 IU/mL (>15)
[2024-03-07 21:49] LABS: HIV 1 & 2 Ab/Ag 4th Gen Combo NEGATIVE (NEGATIVE); Hep C Virus Ab w/Reflex Quant NEGATIVE s/c (NEGATIVE)
== END ==
PROVIDERS: PCP Family Medicine; Referring Provider Student in an Organized Health Care Education/Training Program; Visit Provider Student in an Organized Health Care Education/Training Program
DX: O09.522 Supervision of elderly multigravida, second trimester (principal); O99.210 Obesity complicating pregnancy, unspecified trimester; O98.912 Unspecified maternal infectious and parasitic disease complicating pregnancy, second trimester; A49.9 Bacterial infection, unspecified; Z3A.16 16 weeks gestation of pregnancy
CPT/HCPCS: 36415; 80053; 80055; 83036; 86787; 86803; 86850; 86900; 86901; 87086; 87389; 87480; 87510; 87660